=== PATIENT | male | born 1965 | race American Indian/Alaskan Native ===

== ENCOUNTER 2020-01-18 09:07 | Emergency (ER) | payer SELFPAY ==
[2020-01-18 09:24] VITALS: BP 132/78
--- NOTE | 2020-01-18 10:59 | XRay Report ---
CHEST 2 VIEWS INDICATION: sob. COMPARISON: None FINDINGS: Support devices: None. Heart: Within normal limits. Lungs/pleura: No acute air space or interstitial disease. No pneumothorax. Additional findings: None. IMPRESSION: 1. No acute findings. Signer Name: Quoc Dwyer MD Signed: 01/18/2020 10:54 AM Workstation Name: [id number]
[2020-01-18] MEDS ORDERED: ALBUTEROL 2.5 MG/3 ML NEBU IH ONE (11:21)
[2020-01-18] MEDS ORDERED: predniSONE 20 MG TAB PO ONE (11:21)
--- NOTE | 2020-01-18 11:21 | Emergency Department Report ---
Minor Respiratory - HPI Chief Complaint: Dyspnea/Respdistress Stated Complaint: SOB/ASTHMA/RTSIDE CHEST HEAVY Time Seen by Provider: 01/18/20 11:16 Duration: 4 Days Pain Location: Chest Severity: mild Minor Respiratory: Yes Able to Tolerate Fluids, Yes Cough, No Rhinorrhea, No Sore Throat, No Ear Pain, No Sick Contacts, No Hemoptysis, No Chest Pain, No Shortness of Breath, No Fever Other History: Patient is a 54-year-old -[place] Citizen male who comes to the ER today with shortness of breath and wheezing. He states he is out of his albuterol. He denies having a primary care physician. He denies fever or chills. Denies any sputum. ED Review of Systems ROS: Stated complaint: SOB/ASTHMA/RTSIDE CHEST HEAVY Other details as noted in HPI Comment: All other systems reviewed and negative ED Past Medical Hx - Past Medical History Previous Medical History?: Yes Hx Asthma: Yes - Surgical History Past Surgical History?: Yes Additional Surgical History: Surgery on right lung for pneumo sp rib fx - Family History Family history: no significant - Social History Smoking Status: Current Every Day Smoker Substance Use Type: None - Medications Home Medications: Home Medications Medication Instructions Recorded Confirmed Last Taken Type Albuterol INH(or & Nicu Only) 2 puff IH QID PRN #1 inhalation 01/18/20 Unknown Rx [ProAir HFA Inhaler] predniSONE [Deltasone] 20 mg PO DAILY #5 tablet 01/18/20 Unknown Rx Minor Respiratory Exam - Exam General: Vital signs noted. No distress. Alert and acting appropriately. HEENT: Yes Moist Mucous Membranes, No Pharyngeal Erythema, No Pharyngeal Exudates, No Rhinorrhea, No Conjuctival Injection, No Frontal Tenderness, No Maxillary Tenderness Ear: Neither TM Bulge, Neither TM Erythema, Neither EAC Pain, Neither EAC Discharge Neck: Yes Supple, No Adenopathy Lungs: Yes Good Air Exchange, Yes Wheezes, No Ronchi, No Stridor, No Cough, No Labored Respirations, No Retractions, No Use of Accessory Muscles, No Other Abnormal Lung Sounds Heart: Yes Regular, No Murmur Abdomen: Yes Normal Bowel Sounds, No Tenderness, No Peritoneal Signs Skin: No Rash, No Edema Neurologic: Alert and oriented, no deficits. Musculoskeletal: Unremarkable. ED Course Vital Signs 01/18/20 09:21 Temperature 97.5 F L Pulse Rate 89 Respiratory 24 Rate Blood Pressure 132/78 O2 Sat by Pulse 100 Oximetry ED Medical Decision Making - Radiology Data Radiology results: report reviewed, image reviewed nap - Medical Decision Making Vital Signs 01/18/20 09:21 Temperature 97.5 F L Pulse Rate 89 Respiratory 24 Rate Blood Pressure 132/78 O2 Sat by Pulse 100 Oximetry xray noted duoneb with prednisone in ER VSS no fever no chills no sputum dc home with rx and pcp followup/referral - Differential Diagnosis ro pna Critical care attestation.: If time is entered above; I have spent that time in minutes in the direct care of this critically ill patient, excluding procedure time. ED Disposition Clinical Impression: Asthma exacerbation, Non-adherence to medical treatment Disposition: DC-01 TO HOME OR SELFCARE Is pt being admited?: No Does the pt Need Aspirin: No Condition: Stable Instructions: Asthma (ED) Additional Instructions: follow up with PCP for recheck and med refills referral below Prescriptions: predniSONE [Deltasone] 20 mg PO DAILY #5 tablet Albuterol INH(or & Nicu Only) [ProAir HFA Inhaler] 2 puff IH QID PRN #1 inhalation PRN Reason: Shortness Of Breath Referrals: EWA DUMONT MD [Staff Physician] - 3-5 Days Time of Disposition: 11:20
== END 2020-01-18 12:42 | disposition home or self-care (01) ==
LOC: ED 09:07
DX: J45.901 Unspecified asthma with (acute) exacerbation (principal); F17.200 Nicotine dependence, unspecified, uncomplicated; Z91.19 Patient's noncompliance with other medical treatment and regimen; Z98.890 Other specified postprocedural states
CPT/HCPCS: 71046; 94640; 99283; J7512; 94644